=== PATIENT | male | born 1950 | race Caucasian/White ===

== ENCOUNTER → 2016-06-25 | Outpatient (CLI) | payer MEDICARE ==
[~2016-06-25] MED LIST: ETODOLAC400 MG PO; FLEXERIL10 MG PO; HALFPRIN81 MG PO; LUTEIN6 MG PO; PHOSLO667 MG PO; VITAMIN D31000 UNIT PO; ZOCOR40 MG PO
== END | disposition short-term general hospital (02) ==
LOC: CLCARD 11:11
DX: R00.2 Palpitations (principal); I49.1 Atrial premature depolarization; R09.89 Other specified symptoms and signs involving the circulatory and respiratory systems; E78.5 Hyperlipidemia, unspecified; R73.03 Prediabetes; Z98.1 Arthrodesis status; Z72.0 Tobacco use; Z85.828 Personal history of other malignant neoplasm of skin; Z98.890 Other specified postprocedural states

== ENCOUNTER → 2016-07-02 | Outpatient (CLI) | payer MEDICARE | END | disposition short-term general hospital (02) | LOC: CLCARD 09:05 | DX: I48.0 Paroxysmal atrial fibrillation (principal); R00.2 Palpitations; E78.5 Hyperlipidemia, unspecified; I25.10 Atherosclerotic heart disease of native coronary artery without angina pectoris ==

== ENCOUNTER → 2016-07-16 | Outpatient (CLI) | payer MEDICARE | END | disposition short-term general hospital (02) | LOC: CLCARD 09:53 | DX: I48.0 Paroxysmal atrial fibrillation (principal); E78.5 Hyperlipidemia, unspecified; Z72.0 Tobacco use ==

== ENCOUNTER → 2016-08-20 | Outpatient (CLI) | payer MEDICARE | END | disposition short-term general hospital (02) | LOC: CLCARD 03:33 | DX: I48.0 Paroxysmal atrial fibrillation (principal); R00.2 Palpitations; E78.5 Hyperlipidemia, unspecified; Z72.0 Tobacco use ==